=== PATIENT | female | born 1990 | race Two or more races ===

== ENCOUNTER 2022-02-08 13:44 | Emergency (ER) | payer OTHER, SELFPAY ==
--- NOTE | ~2022-02-08 | US_ITS ---
EXAMINATION: US OBSTETRICAL ULTRASOUND CLINICAL INFORMATION: Pelvic cramping, bleeding approximately 6 weeks COMPARISON: None. LMP: 12/13/2021. Gestational age by maternal dates is 8 weeks and 1 day. Estimated date of delivery by maternal dates is 09/19/2022. TECHNIQUE: Transabdominal and transvaginal imaging of pelvis is performed. FINDINGS: There is a single intrauterine gestational sac with visible yolk sac, embryo/fetus. cardiac activity was nonvisualized likely due to early .. There is small subchorionic hemorrhage measuring 0.5 x 1.5 x 0.5 cm.. HR: heartbeat was nonvisualized likely too early gestation.. CRL (crown rump length): 0.3 cm (6 weeks 0 days +/- 4 days). MARVIN (estimated date of delivery): 10/04/2022 +/- 4 days. MATERNAL ADNEXA: The right maternal ovary measures 2.4 x 2.5 x 1.3 cm. The left maternal ovary measures 2.6 x 2.1 x 2.7 cm. There is anechoic exophytic cyst measuring 2.0 x 1.8 x 2.2 cm. There is no significant maternal adnexal mass. No maternal pelvic ascites. US/US OB pelvic and transvaginal IMPRESSION: 1. Single intrauterine gestation with ultrasound gestational age of 6 weeks and 3 days +/- 4 days. 2. Estimated date of delivery is 10/04/2022 +/- 4 days. 3. No maternal adnexal mass or pelvic ascites.
[2022-02-08 14:13] VITALS: BP 136/85; PULSE 84; RESP 16; TEMP 36.8; O2SAT 98; BMI 29.2
--- NOTE | 2022-02-08 14:14 | ED.FEMALEGU ---
HPI - Female Genitourinary General Chief complaint: Vaginal Bleeding <Olga Beltran CNP - Last Filed: 02/08/22 14:20> Stated complaint: vaginal bleeding 6 wks <Olga Beltran CNP - Last Filed: 02/08/22 14:20> Time Seen by Provider: 02/08/22 15:18 <Olga Beltran CNP - Last Filed: 02/08/22 14:20> Source: patient <ROSALIE Jarquin - Last Filed: 02/08/22 17:39> Mode of arrival: ambulatory <ROSALIE Jarquin - Last Filed: 02/08/22 17:39> Limitations: no limitations <ROSALIE Jarquin Last Filed: 02/08/22 17:39> History of Present Illness HPI Narrative: 31-year-old female (currently 5-6 weeks ) with history of early miscarriage in the past who presents to the ER for evaluation of painless vaginal bleeding for the last few days. Patient was seen for the same at [facility] on February 01. At that time her vaginal bleeding was darker brown in color. She had a beta HCG of 11,000 at that time. She had a ultrasound showing single intrauterine gestation, possible small blood clot or subchorionic hemorrhage versus blighted twin on her imaging. She states her bleeding had gone away and today she started spotting with brighter red blood. There was a small piece of tissue but no overt clots. No heavy bleeding. No abdominal pain. No nausea or vomiting. <ROSALIE Jarquin - Last Filed: 02/08/22 17:39> MD elicited complaint: vaginal bleeding <ROSALIE Jarquin - Last Filed: 02/08/22 17:39> Pertinent past history: prior miscarriages <ROSALIE Jarquin Last Filed: 02/08/22 17:39> Onset (ago): hour(s) <ROSALIE Jarquin - Last Filed: 02/08/22 17:39> Location of symptoms: vaginal <ROSALIE Jarquin Last Filed: 02/08/22 17:39> Severity: mild <ROSALIE Jarquin Last Filed: 02/08/22 17:39> Consistency: intermittent <ROSALIE Jarquin - Last Filed: 02/08/22 17:39> Vaginal discharge: none <ROSALIE Jarquin - Last Filed: 02/08/22 17:39> Vaginal bleeding: scant and bright red <ROSALIE Jarquin - Last Filed: 02/08/22 17:39> Exacerbating factors: urination <ROSALIE Jarquin - Last Filed: 02/08/22 17:39> Relieving factors: none <ROSALIE Jarquin - Last Filed: 02/08/22 17:39> Associated symptoms: denies other symptoms <ROSALIE Jarquin - Last Filed: 02/08/22 17:39> Treatment prior to arrival: none <ROSALIE Jarquin - Last Filed: 02/08/22 17:39> Sexual activity: No <ROSALIE Jarquin - Last Filed: 02/08/22 17:39> Patient : Yes <ROSALIE Jarquin - Last Filed: 02/08/22 17:39> Related Data : 2 <ROSALIE Jarquin - Last Filed: 02/08/22 17:39> Para: 1 <ROSALIE Jarquin - Last Filed: 02/08/22 17:39> Total number of abortions (spontaneous and elective): 1 <ROSALIE Jarquin - Last Filed: 02/08/22 17:39> Allergies/Adverse reactions: Allergies Allergy/AdvReac Type Severity Reaction Status Date / Time No Known Allergies Allergy Unverified 12/01/19 19:27 [No Known Allergies*] <Olga Beltran CNP - Last Filed: 02/08/22 14:20> Review of Systems Review of Systems: Constitutional: No Fever, No Chills ENT/Mouth: No sore throat, No Rhinorrhea Cardiovascular: No Chest Pain, No SOB Respiratory: No Cough, No Sputum Gastrointestinal: No Nausea, No Vomiting, No Diarrhea, No abdominal Pain Genitourinary: No Dysuria, No Urinary Frequency, No Hematuria, +Vaginal bleeding Skin: No Skin Lesions, No rash Neuro: No Weakness, No Numbness, No Dizziness, No Headache Psych: + Anxiety/Panic, No Depression Heme/Lymph: No Bruising, No Lymphadenopathy <ROSALIE Jarquin - Last Filed: 02/08/22 17:39> [facility] Past Medical History : 2 <ROSALIE Jarquin - Last Filed: 02/08/22 17:39> Para: 1 <ROSALIE Jarquin - Last Filed: 02/08/22 17:39> Total number of abortions (spontaneous and elective): 1 <ROSALIE Jarquin - Last Filed: 02/08/22 17:39> Social History Social History: Social History Advance Directives: No Advance Directives Information Provided: Yes <Olga Beltran CNP - Last Filed: 02/08/22 14:20> Physical Exam Vital Signs: Vital Signs: Last Vital Signs Temp 98.3 F 02/08/22 14:13 Pulse 84 02/08/22 14:13 Resp 16 02/08/22 14:13 BP 136/85 02/08/22 14:13 Pulse Ox 98 02/08/22 14:13 O2 Del Method 02/08/22 14:13 BMI result Body Mass Index 29.2 <Olga Santose SABRINA Beltran - Last Filed: 02/08/22 14:20> Vital Signs: Last Vital Signs Temp 98.3 F 02/08/22 14:13 Pulse 84 02/08/22 14:13 Resp 16 02/08/22 14:13 BP 136/85 02/08/22 14:13 Pulse Ox 98 02/08/22 14:13 O2 Del Method 02/08/22 14:13 BMI result Body Mass Index 29.2 <ROSALIE Jarquin - Last Filed: 02/08/22 17:39> Appearance: Alert. Oriented X3. No acute distress. Eyes: Pupils equal, round and reactive to light. ENT: Pharynx normal. Neck: Normal inspection. Neck supple. CVS: Normal heart rate and rhythm. Pulses normal. Respiratory: No respiratory distress. Breath sounds normal. Abdomen: Soft and nontender. No suprapubic tenderness. +BS x4 Pelvic: normal external inspection. No blood visualized in the distal vaginal vault. Patient did not tolerate speculum examination due to pain. Skin: Skin warm and dry. Normal skin color. Normal skin turgor. No rashes. Extremities: No lower extremity edema. Neuro: Oriented X 3. Grossly normal, nonfocal <ROSALIE Jarquin - Last Filed: 02/08/22 17:39> Course Course Course Narrative: RME: Patient is a 31-year-old female , prior miscarriage 2019 presenting to emergency department for vaginal bleeding. Reports last menstrual period 12/13/2021. Has not yet received any OB care. She is scheduled to see [facility] in February. She states 1 week ago she was seen at [facility], she had an ultrasound at that time with estimated gestation of 5 weeks, at that time she has having brown discharge x 1 week. Today she had bright red blood with clots today after wiping, none noted on pad. Having mild cramping. Denies dysuria, fevers, chills. PE: mild suprapubic tenderness upon palpation, vitals stable. Plan: CBC, CMP, Rh, hCG, pelvic ultrasound. <Olga Beltran CNP - Last Filed: 02/08/22 14:20> Reevaluation(s) Reevaluation #1: Beta hCG went from 16923 --> 77612. Ultrasound showing single intrauterine gestation with gestational age of 6 weeks 3 or 4 days. Estimated delivery date October 04 +/-4 days. No heart rate was visualized likely to early gestation. Patient did not tolerate pelvic examination. Unable to visualize cervix to see if it is open or closed. Patient was counseled on her test results and imaging results. She will follow-up with her OBGYN. She has a repeat ultrasound scheduled for February 18. Signs symptoms of miscarriage were discussed. Stable for discharge home. Patient agrees with plan. <ROSALIE Jarquin - Last Filed: 02/08/22 17:39> MDM - Female Genitourinary Lab Data Result diagrams: : 02/08/22 16:26 02/08/22 16:26 <Olga Beltran CNP - Last Filed: 02/08/22 14:20> Labs: Lab Results 02/08/22 02/08/22 02/08/22 Range/Units 16:26 16:26 16:26 WBC 9.0 (4.8-10.8) X10*3/uL RBC 4.27 (4.20-5.50) X10*6/uL Hgb 13.4 (12.0-16.0) g/dl Hct 41.8 (37.0-47.0) % MCV 97.9 (80.0-98.0) fL MCH 31.4 (27.0-33.0) pg MCHC 32.1 (31.0-35.0) g/dl RDW 12.3 (11.0-16.0) % Plt Count 335 (160-400) X10*3/uL MPV 10.7 (9.4-12.3) fL Immature Gran % (Auto) 0.6 H (0.0-0.4) % Neut % (Auto) 82.5 H (45-73) % Lymph % (Auto) 9.8 L (20-40) % [place] % (Auto) 5.9 (2-11) % Eos % (Auto) 0.9 (0-4) % Baso % (Auto) 0.3 (0-2) % Lymph # (Auto) 0.9 L (1.2-4.9) X10*3/uL [place] # (Auto) 0.5 (0.1-1.2) X10*3/uL Eos # (Auto) 0.1 (0.0-0.4) X10*3/uL Baso # (Auto) 0.0 (0.0-0.2) X10*3/uL Abs Immat Gran (auto) 0.05 H (0.00-0.03) X10*3/uL Absolute Neuts (auto) 7.4 (2.0-8.3) x10*3/uL Absolute Nucleated RBC 0.000 (0.0-0.012) X10*3/uL Nucleated RBC % (auto) 0.0 (0.0-0.2) /100WBC Sodium 138 (135-145) mmol/L Potassium 4.1 (3.3-5.1) mmol/L Chloride 106 (96-108) mmol/L Carbon Dioxide 23 (22-29) mmol/L Anion Gap 13 (12-20) BUN 12 (9-16) mg/dL Creatinine 0.77 (0.5-1.4) mg/dL Estim Creat Clear Calc 108.3 Estimated GFR > 60 Random Glucose 81 (60-115) mg/dL Calcium 9.9 (8.4-10.2) mg/dL Total Bilirubin 0.4 (0.0-1.0) mg/dL AST 15 (5-31) U/L ALT 13 (0-31) U/L Alkaline Phosphatase 71 (39-117) U/L Total Protein 7.9 (6.5-8.0) g/dL Albumin 4.6 (3.5-5.0) g/dL Beta HCG, Quant 95466 mIU/mL Blood Type O Positive <Olgafaizan Beltran, DECATING MACHINE OPERATOR - Last Filed: 02/08/22 14:20> Lab Results 02/08/22 02/08/22 02/08/22 Range/Units 16:26 16:26 16:26 WBC 9.0 (4.8-10.8) X10*3/uL RBC 4.27 (4.20-5.50) X10*6/uL Hgb 13.4 (12.0-16.0) g/dl Hct 41.8 (37.0-47.0) % MCV 97.9 (80.0-98.0) fL MCH 31.4 (27.0-33.0) pg MCHC 32.1 (31.0-35.0) g/dl RDW 12.3 (11.0-16.0) % Plt Count 335 (160-400) X10*3/uL MPV 10.7 (9.4-12.3) fL Immature Gran % (Auto) 0.6 H (0.0-0.4) % Neut % (Auto) 82.5 H (45-73) % Lymph % (Auto) 9.8 L (20-40) % [place] % (Auto) 5.9 (2-11) % Eos % (Auto) 0.9 (0-4) % Baso % (Auto) 0.3 (0-2) % Lymph # (Auto) 0.9 L (1.2-4.9) X10*3/uL [place] # (Auto) 0.5 (0.1-1.2) X10*3/uL Eos # (Auto) 0.1 (0.0-0.4) X10*3/uL Baso # (Auto) 0.0 (0.0-0.2) X10*3/uL Abs Immat Gran (auto) 0.05 H (0.00-0.03) X10*3/uL Absolute Neuts (auto) 7.4 (2.0-8.3) x10*3/uL Absolute Nucleated RBC 0.000 (0.0-0.012) X10*3/uL Nucleated RBC % (auto) 0.0 (0.0-0.2) /100WBC Sodium 138 (135-145) mmol/L Potassium 4.1 (3.3-5.1) mmol/L Chloride 106 (96-108) mmol/L Carbon Dioxide 23 (22-29) mmol/L Anion Gap 13 (12-20) BUN 12 (9-16) mg/dL Creatinine 0.77 (0.5-1.4) mg/dL Estim Creat Clear Calc 108.3 Estimated GFR > 60 Random Glucose 81 (60-115) mg/dL Calcium 9.9 (8.4-10.2) mg/dL Total Bilirubin 0.4 (0.0-1.0) mg/dL AST 15 (5-31) U/L ALT 13 (0-31) U/L Alkaline Phosphatase 71 (39-117) U/L Total Protein 7.9 (6.5-8.0) g/dL Albumin 4.6 (3.5-5.0) g/dL Beta HCG, Quant 99875 mIU/mL Blood Type O Positive <ROSALIE Jarquin - Last Filed: 02/08/22 17:39> Discharge Plan Discharge Clinical Impression: Vaginal bleeding, <Olga Beltran CNP - Last Filed: 02/08/22 14:20> Patient Disposition: Home, Self-Care <Olga Beltran CNP - Last Filed: 02/08/22 14:20> Instructions: Non-Threatening First Trimester Vaginal Bleed (ED), at 7 to 10 Weeks (ED) <Olga Beltran CNP - Last Filed: 02/08/22 14:20> Additional Instructions: Your hormone went to 14,248. Your ultrasound showed a single intrauterine gestation with age of 6 weeks and 3 or 4 days. Estimated delivery date is October 04 +/-4 days. A heart rate was not visualized likely to early gestation. Recommend following up with her OBGYN for repeat ultrasound and trending of your hormone levels If you develop new or worsening symptoms call 911 or come back to the ER for further evaluation. <Olga Beltran, SABRINA - Last Filed: 02/08/22 14:20>
[2022-02-08 16:30] LABS: MANUAL DIFF FLAG NO
[2022-02-08 16:32] LABS: Basophils Percent Auto 0.3 % (0-2); Eosinophils Absolute Auto 0.1 X10*3/uL (0.0-0.4); Eosinophils Percent Auto 0.9 % (0-4); Hematocrit 41.8 % (37.0-47.0); Hemoglobin 13.4 g/dl (12.0-16.0); Imm Gran Abs Auto 0.05 X10*3/uL (0.00-0.03); Imm Gran Pct Auto 0.6 % (0.0-0.4); Lymphocytes Absolute Auto 0.9 X10*3/uL (1.2-4.9); Lymphocytes Percent Auto 9.8 % (20-40); Mean Corpuscular HGB Conc 32.1 g/dl (31.0-35.0); Mean Corpuscular Hemoglobin 31.4 pg (27.0-33.0); Mean Corpuscular Volume 97.9 fL (80.0-98.0); Mean Platelet Volume 10.7 fL (9.4-12.3); Monocytes Absolute Auto 0.5 X10*3/uL (0.1-1.2); Monocytes Percent Auto 5.9 % (2-11); Neutrophils Absolute Auto 7.4 x10*3/uL (2.0-8.3); Neutrophils Percent Auto 82.5 % (45-73); Platelet Count 335 X10*3/uL (160-400); Red Blood Count 4.27 X10*6/uL (4.20-5.50); Red Cell Distribution Width 12.3 % (11.0-16.0)
[2022-02-08 16:54] LABS: Alanine Aminotransferase 13 U/L (0-31); Albumin Level 4.6 g/dL (3.5-5.0); Alkaline Phosphatase 71 U/L (39-117); Anion Gap 13 (12-20); Aspartate Amino Transferase 15 U/L (5-31); Bilirubin Total 0.4 mg/dL (0.0-1.0); Blood Urea Nitrogen 12 mg/dL (9-16); Calcium 9.9 mg/dL (8.4-10.2); Carbon Dioxide 23 mmol/L (22-29); Chloride 106 mmol/L (96-108); Creatinine Clr Calc Pharmacy 108.3; Estimated Glomerular Filt Rate > 60; Glucose Random 81 mg/dL (60-115); HCG Quantitative 14248 mIU/mL; Potassium 4.1 mmol/L (3.3-5.1); Sodium 138 mmol/L (135-145); Total Protein 7.9 g/dL (6.5-8.0)
== END 2022-02-08 18:11 | disposition home or self-care (01) ==
PROVIDERS: Nurse Practitioner Family; Emergency Provider Emergency Medicine
DX: O20.9 Hemorrhage in early pregnancy, unspecified (principal); Z3A.01 Less than 8 weeks gestation of pregnancy
CPT/HCPCS: 36415; 76801; 76817; 80053; 84702; 85025; 86900; 86901; 99283; 99284